=== PATIENT | female | born 1940 | race Caucasian/White ===

== ENCOUNTER 2021-10-06 11:18 | Inpatient (IN) | payer OTHER ==
[~2021-10-06 11:18] MED LIST: ARICEPT10 MG; ATACAND16 MG; MEMANTINE HCL10 MG; OLANZAPINE2.5 MG; RESTORIL30 MG; SERTRALINE PO; SIMVASTATIN PO
[2021-10-08] MEDS ORDERED: SIMVASTATIN20 MG (14:21)
[2021-10-08] MEDS ORDERED: SERTRALINE HCL50 MG (14:21)
[2021-10-12] MEDS ORDERED: HYOSCYAMINE0.125 M1 SL (12:08)
[2021-10-12] MEDS ORDERED: INTESTINEX680 M1 PO (12:09)
[2021-10-12] MEDS ORDERED: PROTONIX40 MG PO (12:09)
[2021-10-12] MEDS ORDERED: ULTRACET PO (12:09)
== END 2021-10-12 14:29 | disposition home or self-care (01) | DRG 330 ==
LOC: SURH 10-08 07:00 → O/R 10-08 07:46 → SURG 10-08 07:46 → SURH 10-08 07:46 → SURG 10-08 13:38 → SURH 10-08 15:29
PROVIDERS: ADMIT Surgery; ATTEND Surgery
PROC: 0DTF4ZZ Resection of Right Large Intestine, Percutaneous Endoscopic Approach (ICD-10-PCS; principal; 2021-10-08 07:00)
DX: D12.2 Benign neoplasm of ascending colon (principal); T81.31XA Disruption of external operation (surgical) wound, not elsewhere classified, initial encounter; R59.0 Localized enlarged lymph nodes; I11.9 Hypertensive heart disease without heart failure; G30.8 Other Alzheimer's disease; F02.80 Dementia in other diseases classified elsewhere, unspecified severity, without behavioral disturbance, psychotic disturbance, mood disturbance, and anxiety